=== PATIENT | female | born 1990 | race Two or more races ===

== ENCOUNTER 2024-04-19 10:30 | Inpatient (IN) | payer OTHER ==
[~2024-04-19] VITALS: Ht 149.9 cm; Wt 59.0 kg
[2024-04-20 18:58] LABS: RH POSITIVE
[2024-04-28] MEDS ORDERED: LIDOCAINE HCL 1%/EPINEPHRINE 20ML VIAL IJ ONE (07:30)
[2024-04-28] MEDS ORDERED: CEFTRIAXONE SODIUM 2,000 MG VIAL ONE (07:30)
[2024-04-28] MEDS ORDERED: POVIDONE-IODINE 118 ML BOTT TOP ONE (07:30)
[2024-04-28] MEDS ORDERED: BUPIVACAINE HCL/MPF 0.5% 30ML VIAL ONE (07:30)
[2024-04-28] MEDS ORDERED: METRONIDAZOLE/SODIUM CHLORIDE 500 MG/100 ML PIGGYBACK IV ONE (07:31)
[2024-04-28] MEDS ORDERED: VISTASEAL DUAL APPICATOR 1 EACH APPL TOP ONE (08:14)
[2024-04-28] MEDS ORDERED: THROMBIN,HU/FIBRINOGEN/CALCIUM 10 ML SYRINGE TOP ONE (08:14)
[2024-04-28] MEDS ORDERED: ONDANSETRON HCL 2 MG/ML VIAL IV SCH (10:10)
[2024-04-28] MEDS ORDERED: RINGERS SOLUTION,LACTATED 1,000 ML IV SCH (10:21)
[2024-04-28] MEDS ORDERED: MORPHINE SULFATE 4 MG/ML VIAL IV ONE ×2 (11:00→14:10)
[2024-04-28] MEDS ORDERED: MORPHINE SULFATE 4 MG/ML CARTRIDGE IV SCH (12:00)
[2024-04-28] MEDS ORDERED: ACETAMINOPHEN 325 MG TABLET PO SCH (12:00)
[2024-04-28] MEDS ORDERED: GABAPENTIN 100 MG CAPSULE PO SCH (13:00)
[2024-04-28] MEDS ORDERED: CEFAZOLIN SODIUM 1,000 MG VIAL IV SCH (13:00)
[2024-04-28 13:10] LABS: CALCIUM 8.4 mg/dL (8.5-10.1); CREATININE SERUM 0.55 mg/dL (0.55-1.02); GFR 128.92; POTASSIUM 3.97 mEq/L (3.5-5.1)
[2024-04-28] MEDS ORDERED: CEFAZOLIN SODIUM 1,000 MG VIAL ONE (14:30)
[2024-04-28 15:27] LABS: HEMATOCRIT 38.1 % (36.0-45.00); HEMOGLOBIN 12.9 g/dL (12.0-15.00); MEAN CORPUSCULAR HEMOGLOBIN 31.1 pg (27.00-32.0); MEAN CORPUSCULAR HGB CONC 33.8 g/dl (32.0-36.0); PLATELET COUNT 238 K/uL (150-450); RED BLOOD COUNT 4.14 M/uL (4.00-6.00); RED CELL DISTRIBUTION WIDTH 12.7 % (11.5-14.5)
[2024-04-28 15:30] VITALS: BP 108/72
[2024-04-28 16:51] LABS: HEMATOCRIT 37.9 % (36.0-45.00); MEAN CELL VOLUME 91.6 fL (80.00-100.00); MEAN CORPUSCULAR HEMOGLOBIN 31.4 pg (27.00-32.0); MEAN CORPUSCULAR HGB CONC 34.3 g/dl (32.0-36.0); PLATELET COUNT 257 K/uL (150-450); RED BLOOD COUNT 4.14 M/uL (4.00-6.00); RED CELL DISTRIBUTION WIDTH 12.5 % (11.5-14.5)
[2024-04-28] MEDS ORDERED: CELECOXIB 200 MG CAPSULE PO SCH (17:00)
[2024-04-29] VITALS: BP 91/57
[2024-04-29 06:37] LABS: CALCIUM 7.9 mg/dL (8.5-10.1); CREATININE SERUM 0.53 mg/dL (0.55-1.02); GFR 134.55; POTASSIUM 3.45 mEq/L (3.5-5.1)
[2024-04-29 06:41] LABS: HEMATOCRIT 31.9 % (36.0-45.00); HEMOGLOBIN 11.5 g/dL (12.0-15.00); MEAN CELL VOLUME 90.2 fL (80.00-100.00); MEAN CORPUSCULAR HEMOGLOBIN 32.5 pg (27.00-32.0); PLATELET COUNT 217 K/uL (150-450); RED BLOOD COUNT 3.53 M/uL (4.00-6.00); RED CELL DISTRIBUTION WIDTH 12.6 % (11.5-14.5)
[2024-04-29 08:00] VITALS: BP 94/61
== END 2024-04-29 09:28 | disposition home or self-care (01) | DRG 743 ==
LOC: SURG 04-20 11:15 → EDUNIT# 04-20 11:15 → O/R 04-28 05:30 → SURG 04-28 07:00 → OB/GYN 04-28 14:22
PROVIDERS: Obstetrics & Gynecology Gynecology; Surgery; Urology; ADMIT Student in an Organized Health Care Education/Training Program; ATTEND Student in an Organized Health Care Education/Training Program
PROC: 0DNE4ZZ Release Large Intestine, Percutaneous Endoscopic Approach (ICD-10-PCS; 2024-04-28)
PROC: 0DNW4ZZ Release Peritoneum, Percutaneous Endoscopic Approach (ICD-10-PCS; 2024-04-28)
PROC: 0DTJ4ZZ Resection of Appendix, Percutaneous Endoscopic Approach (ICD-10-PCS; 2024-04-28)
PROC: 0T788DZ Dilation of Bilateral Ureters with Intraluminal Device, Via Natural or Artificial Opening Endoscopic (ICD-10-PCS; 2024-04-28)
PROC: 0UT94ZZ Resection of Uterus, Percutaneous Endoscopic Approach (ICD-10-PCS; principal; 2024-04-28 07:00)
PROC: 0UT64ZZ Resection of Left Fallopian Tube, Percutaneous Endoscopic Approach (ICD-10-PCS; 2024-04-28 07:00)
PROC: 0UT14ZZ Resection of Left Ovary, Percutaneous Endoscopic Approach (ICD-10-PCS; 2024-04-28 07:00)
DX: D25.2 Subserosal leiomyoma of uterus (principal); N80.03 Adenomyosis of the uterus; N83.02 Follicular cyst of left ovary; N94.5 Secondary dysmenorrhea; N80.559 Endometriosis of other parts of the colon, unspecified depth; N80.201 Endometriosis of right fallopian tube, unspecified depth; D27.1 Benign neoplasm of left ovary

== ENCOUNTER 2024-04-20 10:32 | Outpatient (CLI) | payer OTHER ==
[2024-04-20 11:19] LABS: HEMATOCRIT 38.2 % (36.0-45.00); HEMOGLOBIN 13.5 g/dL (12.0-15.00); MEAN CELL VOLUME 89.9 fL (80.00-100.00); MEAN CORPUSCULAR HEMOGLOBIN 31.8 pg (27.00-32.0); MEAN CORPUSCULAR HGB CONC 35.4 g/dl (32.0-36.0); PLATELET COUNT 270 K/uL (150-450); RED BLOOD COUNT 4.25 M/uL (4.00-6.00); RED CELL DISTRIBUTION WIDTH 13.3 % (11.5-14.5)
[2024-04-20 11:42] LABS: URINE APPEARANCE Clear; URINE BILIRRUBIN Negative (NEGATIVE); URINE BLOOD Negative; URINE COLOR Yellow; URINE GLUCOSE Negative (NEGATIVE); URINE KETONE Negative (NEGATIVE); URINE LEUKOCYTE Negative; URINE NITRATE Negative; URINE PROTEIN Negative (NEGATIVE)
[2024-04-20 11:44] LABS: INR 1.05; PARTIAL THROMBOPLASTIN TIME 27.9 SECONDS (22.0-34.0); PROTHROMBIN TIME 11.4 SECONDS (9.0-11.5)
[2024-04-20 11:49] LABS: URINE BACTERIA 1340.2 uL (0.0-1933); URINE EPITHELIAL CELLS 76.1 uL (0.0-38.8); URINE RBC 13.1 uL (0.0-20.8); URINE WBC 5.2 uL (0.0-23.2)
[2024-04-20 12:21] LABS: ALBUMIN 3.9 gm/dL (3.4-5.0); BILIRUBIN TOTAL 0.41 mg/dL (0.3-1.2); CALCIUM 9.3 mg/dL (8.5-10.1); CREATININE SERUM 0.59 mg/dL (0.55-1.02); GFR 118.88; GLOBULINA 3.7 G/DL (2.4-3.5); POTASSIUM 4.09 mEq/L (3.5-5.1); TOTAL PROTEIN 7.6 gm/dL (6.4-8.2)
== END 2024-04-20 10:33 | disposition home or self-care (01) ==
LOC: RAD 10:32
PROVIDERS: ATTEND Student in an Organized Health Care Education/Training Program
DX: Z01.818 Encounter for other preprocedural examination (principal); D68.9 Coagulation defect, unspecified; R05.1 Acute cough; Z20.822 Contact with and (suspected) exposure to COVID-19